=== PATIENT | male | born 1950 | race Caucasian/White ===

== ENCOUNTER → 2016-04-12 | Outpatient (CLI) | payer BC ==
[2016-04-12 07:47] LABS: Basophils % (A) 1 %; CH 33.8; Eosinophils # (A) 0.2 k/uL (0-0.7); Eosinophils % (A) 2 %; HCT 45.6 % (39.0-53.0); HDW 2.41; HGB 15.5 gm/dL (13.0-17.5); Luc # (Auto) 0.21; Luc % (Auto) 3; Lymphocytes # (A) 2.7 k/uL (1.0-4.8); Lymphocytes % (A) 31 %; MCH 33.9 pg (25.0-35.0); MCV 99.6 fL (80.0-100.0); Monocytes # (A) 0.4 k/uL (0-1.0); Monocytes % (A) 4 %; Neutrophils # (A) 5.1 k/uL (1.3-7.7); Neutrophils % (A) 60 %; RBC 4.58 m/uL (4.30-5.90); RDW 12.8 % (11.5-15.5); WBC 8.5 k/uL (3.8-10.6); WBC (Perox) 9.22
[2016-04-12 08:13] LABS: Manual Review Performed
[2016-04-12 08:14] LABS: RBC Morphology Normal
== END | disposition home or self-care (01) ==
LOC: LABWHC1 07:05
PROVIDERS: ATTEND Internal Medicine
DX: D64.9 Anemia, unspecified (principal); D69.6 Thrombocytopenia, unspecified
CPT/HCPCS: 36415; 85025

== ENCOUNTER → 2019-08-24 | Outpatient (CLI) | payer MEDICARE ==
--- NOTE | 2019-08-24 08:41 | US ---
EXAMINATION TYPE: US duplex aorta DATE OF EXAM: 08/24/2019 COMPARISON: NONE CLINICAL HISTORY: Z13.6 Encounter for screening for. Screening. EXAM MEASUREMENTS: Abdominal Aorta: Proximal: 1.7 x 1.9 cm Mid: 1.7 x 2.1 cm Distal: 1.6 x 1.7 cm Bifurcation: .9 cm .9 cm IMPRESSION: Mild atheromatous change without evidence for aneurysm.
--- NOTE | 2019-08-24 09:53 | CTL ---
EXAMINATION TYPE: CT Low Dose Lung DATE OF EXAM ORDERED: 08/24/2019 HISTORY: Z 13.6. Lung cancer screening CT DLP: 124.[address] CTDI: 3 mGy Automated exposure control for dose reduction was used. SCREENING VISIT: 1 COMPARISON: Chest x-ray 11/24/2015 TECHNIQUE: Low dose computed tomography scan was performed through the chest at 1 mm thick sections a nd reconstructed images in the coronal plane at [address] DIAGNOSTIC QUALITY: Satisfactory FINDINGS: LUNG NODULES: Present, detailed below: Left lung a nodule with a size of 4 mm. Nodule Size in Millimeters 4 mm was visualized with Nodule T ype: Solid that is Nodule state: New in nature on image # CT Image slide number [id number]. LUNGS: COPD: Severity: Moderate Fibrosis: Severity: Mild Lymph nodes: Nonenlarged Other findings: RIGHT PLEURAL SPACE: Effusion: None Calcification: None Thickening: None Pneumothorax: None LEFT PLEURAL SPACE: Effusion: None Calcification: None Thickening: None Pneumothorax: None HEART: Heart Size: Small Coronary calcification: Moderate to severe Pericardial effusion: None OTHER FINDINGS: Upper abdomen: Bony thorax: There is thoracic spondylosis present. Flowing anterior osteophytes in the lower thoraci c spine with preservation of disc space may be indicative of diffuse idiopathic skeletal hyperostosis Supraclavicular region: Left supraclavicular node appears enlarged, short axis measurement of 15 mm, axial image #25 Other: IMPRESSION: Benign lung nodule. Suspect abnormal enlarged left supraclavicular node. FOLLOW UP CT CHEST RECOMMENDATION: [address] LUNG RAD: 2
== END | disposition home or self-care (01) ==
LOC: RADCTMAIN 07:48
PROVIDERS: ATTEND Internal Medicine
DX: Z12.2 Encounter for screening for malignant neoplasm of respiratory organs (principal); R91.1 Solitary pulmonary nodule; I70.0 Atherosclerosis of aorta; Z87.891 Personal history of nicotine dependence
CPT/HCPCS: 93979; G0297

== ENCOUNTER → 2019-09-09 | Outpatient (CLI) | payer MEDICARE ==
[2019-09-09 12:02] LABS: African American GFR (CKD) >90 (>60 ml/min/1.73 sqM); Blood Urea Nitrogen 14 mg/dL (9-20); Non-African American GFR(CKD) >90 (>60 ml/min/1.73 sqM)
--- NOTE | 2019-09-09 12:54 | CT ---
EXAMINATION TYPE: CT soft tissue neck w con DATE OF EXAM: 09/09/2019 12:31 PM COMPARISON: None HISTORY: Lymphadenitis CT DLP: 758 mGycm Automated exposure control for dose reduction was used. CONTRAST: CT scan of the neck is performed, patient injected with 100 mL of Isovue 300. Axial images are obtai cj, coronal and sagittal reformatted images are reviewed. FINDINGS: Emphysematous changes involving the lung apices are seen. Visualized thyroid enhances homog eneously. Vocal cords are symmetric. Airways patent. Submandibular parotid glands have a normal appearance. Base of the tongue symmetric. Nasopharynx and oropharynx symmetric. Orbits are symmetric. No abnormality intracranially. Changes of sinus polyps or mucous retention cyst . No pathologic adenopathy. IMPRESSION: 1. No pathologic adenopathy. 2. Chronic sinusitis. 3. COPD
== END | disposition home or self-care (01) ==
LOC: RADCTMAIN 11:05
PROVIDERS: ATTEND Internal Medicine
DX: L04.9 Acute lymphadenitis, unspecified (principal)
CPT/HCPCS: 82565; 84520; 70491; Q9967

== ENCOUNTER 2021-02-23 11:15 | Observation (INO) | payer MEDICARE ==
[2021-02-23] MEDS ORDERED: SODIUM CHLORIDE 0.9% 500 ML 500 ML IV STA (12:36)
--- NOTE | 2021-02-23 13:10 | ED ---
General Adult HPI - General Chief complaint: GI Bleed Stated complaint: Blood in stool Time Seen by Provider: 02/23/21 12:00 Source: patient, RN notes reviewed, old records reviewed Mode of arrival: ambulatory Limitations: no limitations - History of Present Illness Initial comments: This is a 70-year-old male who presents emergency Department complaining that he is having some bright red blood per rectum. Patient states quite a bit started last evening he has had multiple bowel movements with nothing but blood. Patient denies any pain patient denies lightheadedness. Patient denies any shortness of breath or difficulty breathing. Patient denies being on any blood thinners. Patient states his last colonoscopy 4 years ago. Patient states stephen dhillon in bed here he feels at his baseline. Patient states he was not having any diarrhea prior to this. Patient denies any recent fever chills or cough. Patient denies any injury. Denies any history of hemorrhoids. - Related Data Home Medications Medication Instructions Recorded Confirmed Atorvastatin [Lipitor] 20 mg PO HS 11/24/15 02/23/21 Losartan [Cozaar] 50 mg PO HS 11/24/15 02/23/21 atenoloL [Tenormin] 50 mg PO DAILY 11/24/15 02/23/21 metFORMIN HCL [Glucophage] 500 mg PO HS 11/24/15 02/23/21 Aspirin EC [Ecotrin Low Dose] 81 mg PO HS 02/23/21 02/23/21 Allergies Allergy/AdvReac Type Severity Reaction Status Date / Time No Known Allergies Allergy Verified 02/23/21 12:34 Review of Systems ROS Statement: Those systems with pertinent positive or pertinent negative responses have been documented in the HPI. ROS Other: All systems not noted in ROS Statement are negative. Past Medical History Past Medical History: Diabetes Mellitus, Hyperlipidemia, Hypertension History of Any Multi-Drug Resistant Organisms: None Reported Past Surgical History: Adenoidectomy, Tonsillectomy Past Psychological History: No Psychological Hx Reported Smoking Status: Current every day smoker Past Alcohol Use History: Daily, Heavy Past Drug Use History: None Reported General Exam - General Exam Comments Initial Comments: GENERAL: Patient is well-developed and well-nourished. Patient is nontoxic and well- hydrated and is in no acute distress. ENT: Neck is soft and supple. No significant lymphadenopathy is noted. Oropharynx is clear. Moist mucous membranes. Neck has full range of motion without eliciting any pain. EYES: The sclera were anicteric and conjunctiva were pink and moist. Extraocular movements were intact and pupils were equal round and reactive to light. Eyelids were unremarkable. PULMONARY: Unlabored respirations. Good breath sounds bilaterally. No audible rales rh onchi or wheezing was noted. CARDIOVASCULAR: There is a regular rate and rhythm without any murmurs gallops or rubs. ABDOMEN: Soft and nontender with normal bowel sounds. SKIN: Skin is clear with no lesions or rashes and otherwise unremarkable. NEUROLOGIC: Patient is alert and oriented x3. Cranial nerves II through XII are grossly intact. Motor and sensory are also intact. Normal speech, volume and content. Symmetrical smile. MUSCULOSKELETAL: Normal extremities with adequate strength and full range of motion. LYMPHATICS: No significant lymphadenopathy is noted PSYCHIATRIC: Normal psychiatric evaluation. Limitations: no limitations Course Vital Signs 02/23/21 02/23/21 02/23/21 11:21 11:49 14:25 Temperature 97.6 F Pulse Rate 62 63 56 L Respiratory 18 18 16 Rate Blood Pressure 154/83 176/89 O2 Sat by Pulse 100 95 Oximetry Medical Decision Making - Medical Decision Making EKG shows sinus bradycardia 56 bpm OK interval 168 QRSs 86 QT interval 420 QTC is 405. Patient's EKG shows no ST segment elevation or depression. I spoke with some physician's name agreed to admit the patient. I spoke with Dr. Stewart doctor tomorrow agreed to be on consultation with this patient. I wrote admitting orders. - Lab Data Result diagrams: 02/23/21 12:37 02/23/21 12:37 Lab Results 02/23/21 02/23/21 02/23/21 Range/Units 12:37 12:37 12:37 WBC 6.4 (3.8-10.6) k/uL RBC 4.40 (4.30-5.90) m/uL Hgb 15.6 (13.0-17.5) gm/dL Hct 45.2 (39.0-53.0) % MCV 102.6 H (80.0-100.0) fL MCH 35.4 H (25.0-35.0) pg MCHC 34.5 (31.0-37.0) g/dL RDW 13.0 (11.5-15.5) % Plt Count 225 (150-450) k/uL MPV 8.4 Neutrophils % 70 % Lymphocytes % 20 % Monocytes % 5 % Eosinophils % 2 % Basophils % 0 % Neutrophils # 4.5 (1.3-7.7) k/uL Lymphocytes # 1.3 (1.0-4.8) k/uL Monocytes # 0.3 (0-1.0) k/uL Eosinophils # 0.1 (0-0.7) k/uL Basophils # 0.0 (0-0.2) k/uL Macrocytosis Slight PT 10.6 (9.0-12.0) sec INR 1.0 (<1.2) APTT 23.8 (22.0-30.0) sec Sodium 131 L (137-145) mmol/L Potassium 4.8 (3.5-5.1) mmol/L Chloride 100 (98-107) mmol/L Carbon Dioxide 22 (22-30) mmol/L Anion Gap 9 mmol/L BUN 13 (9-20) mg/dL Creatinine 0.82 (0.66-1.25) mg/dL Est GFR (CKD-EPI)AfAm >90 (>60 ml/min/1.73 sqM) Est GFR (CKD-EPI)NonAf >90 (>60 ml/min/1.73 sqM) Glucose 147 H (74-99) mg/dL Calcium 9.0 (8.4-10.2) mg/dL Total Bilirubin 0.7 (0.2-1.3) mg/dL AST 20 (17-59) U/L ALT 14 (4-49) U/L Alkaline Phosphatase 80 (38-126) U/L Total Protein 6.9 (6.3-8.2) g/dL Albumin 4.1 (3.5-5.0) g/dL Blood Type Blood Type Confirm Blood Type Recheck Bld Type Recheck Status Antibody Screen Spec Expiration Date 02/23/21 02/23/21 Range/Units 12:50 12:51 WBC (3.8-10.6) k/uL RBC (4.30-5.90) m/uL Hgb (13.0-17.5) gm/dL Hct (39.0-53.0) % MCV (80.0-100.0) fL MCH (25.0-35.0) pg MCHC (31.0-37.0) g/dL RDW (11.5-15.5) % Plt Count (150-450) k/uL MPV Neutrophils % % Lymphocytes % % Monocytes % % Eosinophils % % Basophils % % Neutrophils # (1.3-7.7) k/uL Lymphocytes # (1.0-4.8) k/uL Monocytes # (0-1.0) k/uL Eosinophils # (0-0.7) k/uL Basophils # (0-0.2) k/uL Macrocytosis PT (9.0-12.0) sec INR (<1.2) APTT (22.0-30.0) sec Sodium (137-145) mmol/L Potassium (3.5-5.1) mmol/L Chloride (98-107) mmol/L Carbon Dioxide (22-30) mmol/L Anion Gap mmol/L BUN (9-20) mg/dL Creatinine (0.66-1.25) mg/dL Est GFR (CKD-EPI)AfAm (>60 ml/min/1.73 sqM) Est GFR (CKD-EPI)NonAf (>60 ml/min/1.73 sqM) Glucose (74-99) mg/dL Calcium (8.4-10.2) mg/dL Total Bilirubin (0.2-1.3) mg/dL AST (17-59) U/L ALT (4-49) U/L Alkaline Phosphatase (38-126) U/L Total Protein (6.3-8.2) g/dL Albumin (3.5-5.0) g/dL Blood Type O Positive Blood Type Confirm O Positive Blood Type Recheck No Previous Record Bld Type Recheck Status CABO Indicated Antibody Screen NEGATIVE Spec Expiration Date 02/26/20212349 Disposition Clinical Impression: GI bleed Disposition: [facility] Referrals: Edmund Linares MD [Primary Care Provider] - 1-2 days Time of Disposition: 15:13
[2021-02-23 13:11] LABS: Basophils % (A) 0 %; Eosinophils # (A) 0.1 k/uL (0-0.7); Eosinophils % (A) 2 %; HCT 45.2 % (39.0-53.0); HGB 15.6 gm/dL (13.0-17.5); Lymphocytes # (A) 1.3 k/uL (1.0-4.8); Lymphocytes % (A) 20 %; MCH 35.4 pg (25.0-35.0); MCHC 34.5 g/dL (31.0-37.0); MCV 102.6 fL (80.0-100.0); Macrocytosis Slight; Mean Platelet Volume 8.4; Monocytes # (A) 0.3 k/uL (0-1.0); Monocytes % (A) 5 %; Neutrophils # (A) 4.5 k/uL (1.3-7.7); Neutrophils % (A) 70 %; Platelet Count 225 k/uL (150-450); WBC 6.4 k/uL (3.8-10.6)
[2021-02-23 13:13] LABS: ALT 14 U/L (4-49); AST 20 U/L (17-59); African American GFR (CKD) >90 (>60 ml/min/1.73 sqM); Albumin 4.1 g/dL (3.5-5.0); Alkaline Phosphatase 80 U/L (38-126); Anion Gap 9 mmol/L; Carbon Dioxide 22 mmol/L (22-30); Chloride 100 mmol/L (98-107); Glucose 147 mg/dL (74-99); Non-African American GFR(CKD) >90 (>60 ml/min/1.73 sqM); Potassium 4.8 mmol/L (3.5-5.1); Sodium 131 mmol/L (137-145); Total Bilirubin 0.7 mg/dL (0.2-1.3); Total Protein 6.9 g/dL (6.3-8.2)
[2021-02-23 13:14] LABS: Blood Urea Nitrogen 13 mg/dL (9-20); Partial Thromboplastin Time 23.8 sec (22.0-30.0); Prothrombin Time 10.6 sec (9.0-12.0)
[2021-02-23] MEDS ORDERED: NICOTINE 14MG/24HR PATCH TRANSDERM PRN (14:27)
[2021-02-23] MEDS ORDERED: NALOXONE 0.4 MG/ML 1 ML VIAL IV PRN (14:29)
--- NOTE | 2021-02-23 14:36 | P.HPIM ---
History of Present Illness H&P Date: 02/23/21 Chief Complaint: GI bleeding 70-year-old male who presents emergency Department complaining that he is having some bright red blood per rectum. Had 2 episodes, one last night and one this am. The one this am was smaller in the amount. Patient denies any pain, no sob, no lightheadedness. He is not on any blood thinners. Patient states his last colonoscopy was 4 years ago. Has not been sick lately, no fever chills or cough. Denies any history of hemorrhoids. In the ER his vitals were ok. Na was 131, rest of labs ok. He was admitted for further monitoring. Review of Systems Complete review of system performed, pertinent positives per HPI, otherwise negative Past Medical History Past Medical History: Diabetes Mellitus, Hyperlipidemia, Hypertension History of Any Multi-Drug Resistant Organisms: None Reported Past Surgical History: Adenoidectomy, Tonsillectomy Past Psychological History: No Psychological Hx Reported Smoking Status: Current every day smoker Past Alcohol Use History: Daily, Heavy Past Drug Use History: None Reported Medications and Allergies Home Medications Medication Instructions Recorded Confirmed Type Atorvastatin [Lipitor] 20 mg PO HS 11/24/15 02/23/21 History Losartan [Cozaar] 50 mg PO HS 11/24/15 02/23/21 History atenoloL [Tenormin] 50 mg PO DAILY 11/24/15 02/23/21 History metFORMIN HCL [Glucophage] 500 mg PO HS 11/24/15 02/23/21 History Aspirin EC [Ecotrin Low Dose] 81 mg PO HS 02/23/21 02/23/21 History Allergies Allergy/AdvReac Type Severity Reaction Status Date / Time No Known Allergies Allergy Verified 02/23/21 12:34 Physical Exam Vitals: Vital Signs Temp Pulse Resp BP Pulse Ox 02/23/21 14:25 56 L 16 176/89 95 02/23/21 11:49 63 18 154/83 100 02/23/21 11:21 97.6 F 62 18 Intake and Output 02/22/21 02/23/21 02/23/21 22:59 06:59 14:59 Other: Weight 90.718 kg Constitutional: No acute distress, conversant, pleasant Eyes:Anicteric sclerae, moist conjunctiva, no lid-lag, PERRLA, ENMT: Oropharynx clear, no erythema, exudates Neck: Supple, FROM, no masses, or JVD, No carotid bruits, No thyromegaly Lungs: Clear to auscultation, Clear to percussion, Normal respiratory effort, no accessory muscle use Cardiovascular: Heart regular in rate and rhythm, No murmurs, gallops, or rubs, No peripheral edema Abdominal: Soft, Nontender, no guarding, rebound or rigidity, Normoactive bowel sounds, No hepatomegaly, No splenomegaly, No palpable mass Skin: Normal temperature, tone, texture, turgor, no induration, No subcutaneous nodules, No rash, lesions, No ulcers Extremities: No digital cyanosis, No clubbing, Pedal pulses intact and symmetrical, Radial pulses intact and symmetrical, No calf tenderness Psychiatric: Alert and oriented to person, place and time, appropriate affect, intact judgement Neuro: Muscles Strength 5/5 in all 4 extremities, Sensation to light touch grossly present throughout, Cranial nerves II-XII grossly intact, no focal sensory deficits Results CBC & Chem 7: 02/23/21 12:37 02/23/21 12:37 Labs: Abnormal Lab Results - Last 24 Hours (Table) 02/23/21 02/23/21 Range/Units 12:37 12:37 MCV 102.6 H (80.0-100.0) fL MCH 35.4 H (25.0-35.0) pg Sodium 131 L (137-145) mmol/L Glucose 147 H (74-99) mg/dL Assessment and Plan Plan: GI bleeding Differential includes hemorrhoids vs. diverticular bleed. R/o cancer. Seen by GI already in the ER Will monitor for further bleeding. Recheck hgb in am Chronic HTN Diabetes 2 Hyperlipidemia Stable Resume meds Admit to observation
[2021-02-23] MEDS ORDERED: PEG 3350-NA SULF,BICARB,CL/KCL 4,000 ML BOTTLE PO ONE (16:00)
--- NOTE | 2021-02-23 16:03 | P.CONS ---
History of Present Illness - Reason for Consult Consult date: 02/23/21 GI bleed Requesting physician: Gibson Burgess - Chief Complaint Rectal bleeding - History of Present Illness This is 70-year-old male who presented to the emergency department today with complaints of bright red blood per rectum. Past medical history includes diabetes mellitus, hypertension and hyperlipidemia. He states last night he had a bowel movement which was loose and filled the toilet with blood. He again had a bowel movement this morning around 8 AM that was more formed but still had bright red blood. He denied any associated cramping or abdominal pain. Denied any nausea or vomiting, fevers or chills. No recent sick contacts. He denies any anticoagulation or NSAID use but does take a low-dose baby aspirin daily. He states he does have a history of diverticulitis with his last colonoscopy at age 66 which was approximately [address] Golden. No previous history of GI bleed. Admitting labs WBC 6.4 hemoglobin 15.6 platelet count 225,000 INR 1.0. Review of Systems REVIEW OF SYSTEMS: CARDIOPULMONARY: No chest pain or shortness of breath. Gastrointestinal: No abdominal pain, cramping, or bloating. No nausea or vomiting. No hematemesis, coffee-ground emesis. 2 reported bowel movements with bright red blood. GENITOURINARY: No dysuria or hematuria. MUSCULOSKELETAL: Reports normal range of motion., Joint pain. SKIN: No rashes. No jaundice. ENDOCRINE: No chills, fevers. No excessive weight gain or loss. No polydipsia or polyuria. PSYCHIATRIC: Unremarkable. NEUROLOGY: No change in mental status. Denies dizziness, headache. ENT: Vision unremarkable. CONSTITUTIONAL: No recent weight loss. No fever, chills, night sweats. Past Medical History Past Medical History: Diabetes Mellitus, Hyperlipidemia, Hypertension History of Any Multi-Drug Resistant Organisms: None Reported Past Surgical History: Adenoidectomy, Tonsillectomy Past Psychological History: No Psychological Hx Reported Smoking Status: Current every day smoker Past Alcohol Use History: Daily, Heavy Past Drug Use History: None Reported Medications and Allergies Home Medications Medication Instructions Recorded Confirmed Type Atorvastatin [Lipitor] 20 mg PO HS 11/24/15 02/23/21 History Losartan [Cozaar] 50 mg PO HS 11/24/15 02/23/21 History atenoloL [Tenormin] 50 mg PO DAILY 11/24/15 02/23/21 History metFORMIN HCL [Glucophage] 500 mg PO HS 11/24/15 02/23/21 History Aspirin EC [Ecotrin Low Dose] 81 mg PO HS 02/23/21 02/23/21 History Allergies Allergy/AdvReac Type Severity Reaction Status Date / Time No Known Allergies Allergy Verified 02/23/21 12:34 Physical Exam Vitals: Vital Signs Temp Pulse Resp BP Pulse Ox 02/23/21 11:49 63 18 154/83 100 02/23/21 11:21 97.6 F 62 18 Intake and Output 02/22/21 02/23/21 02/23/21 22:59 06:59 14:59 Other: Weight 90.718 kg General appearance: The patient is alert, oriented, appears in no acute distress. HET: Head is normocephalic and atraumatic. Conjunctiva pink. Sclera anicteric. Neck: Supple without lymphadenopathy. Trachea midline. Heart: S1 S2. Regular rate and rhythm. Lungs: Clear to auscultation. Abdomen: Soft, nontender, nondistended with bowel sounds. No guarding or rigidity. Skin: No rashes. No jaundice. Extremities: Normal skin color and turgor. No pedal edema. Neurological: No focal deficits. Alert and oriented x3. Results CBC & Chem 7: 02/23/21 12:37 02/23/21 12:37 Labs: Abnormal Lab Results - Last 24 Hours (Table) 02/23/21 02/23/21 Range/Units 12:37 12:37 MCV 102.6 H (80.0-100.0) fL MCH 35.4 H (25.0-35.0) pg Sodium 131 L (137-145) mmol/L Glucose 147 H (74-99) mg/dL Assessment and Plan (1) GI bleed Narrative/Plan: A 70-year-old male who presented to the emergency department with complaints of rectal bleeding 2. First episode occurred last night he had a loose bowel movement and filled the toilet with bright red blood. Second was this morning which was more formed but still bright red blood in the toilet and mixed in the stool. He has no previous history of GI bleed. He denied any associated cramping or pain. No nausea or vomiting fevers or chills. I does have a history of diverticulitis with us last colonoscopy [address] Golden. An admission labs were unremarkable. Patient continues to have no abdominal pain nausea or vomiting. He's had no further bleeding. Possible etiologies include diverticular bleed, colitis, AVM or other possible etiologies. Patient has been nothing by mouth and plan is for admission with bowel prep for colonoscopy tomorrow. Current Visit: Yes Status: Acute Code(s): K92.2 - GASTROINTESTINAL HEMORRHAGE, UNSPECIFIED SNOMED Code(s): 75374892 Plan: 1. Continue symptomatic and supportive care 2. Clear liquid diet, nothing by mouth after midnight 3. Bowel prep this afternoon 4. CBC in the a.m., transfuse for hemoglobin less than 7 5. Plan for colonoscopy tomorrow, procedure discussed with patient including risks and benefits. Patient is agreeable to proceed. 6. Protonix for GI prophylaxis Thank you for this consultation, we will continue to follow. Dr. Juliet Stewart I agree with the dictator's note, documented as a scribe by Raina Nino.
[2021-02-23] MEDS ORDERED: ATORVASTATIN 20 MG TAB PO SCH (21:00)
[2021-02-23] MEDS ORDERED: LOSARTAN 50 MG TAB PO SCH (21:00)
[2021-02-24 06:47] VITALS: RESP 16
[2021-02-24] MEDS ORDERED: LIDOCAINE 1% INJ 10MG/ML (20 ML MDV) ONE (06:49)
[2021-02-24] MEDS ORDERED: PROPOFOL 10 MG/ML 20 ML VIAL IV ONE (06:49)
[2021-02-24] MEDS ORDERED: LACTATED RINGERS 1,000 ML IV ONE (06:55)
[2021-02-24] MEDS ORDERED: PANTOPRAZOLE 40 MG TABLET PO SCH (07:30)
--- NOTE | 2021-02-24 07:30 | P.PCN ---
Date of Procedure: 02/24/21 Procedure(s) Performed: BRIEF HISTORY: Patient is a 70-year-old [place] [id number] male admitted hospital with acute lower GI bleed. He had few episodes of bright blood per rectum and the hemoglobin was 10.3 g/dL. Repeat CBC this morning is pending. He scheduled for colonoscopy to evaluate further. PROCEDURE PERFORMED: Colonoscopy. PREOPERATIVE DIAGNOSIS: Acute lower GI bleed. IV sedation per Anesthesia. PROCEDURE: After informed consent was obtained, the patient, was brought into the endoscopy unit. IV sedation was administered by Anesthesia under continuous monitoring. Digital rectal examination was normal. Initially the Olympus CF-160 flexible video colonoscope was then inserted in the rectum, gradually advanced into the cecum without any difficulty. Careful examination was performed as the scope was gradually being withdrawn. Ileocecal valve and the appendiceal orifice were visualized and appeared normal. Prep was fair. There was some fresh blood noted in the left colon.. Mucosa of the cecum, ascending colon, transverse colon, appeared normal. In the left colon there were moderate sigmoid diverticulosis but no active bleeding identified. There was some old blood noted in this area which was thoroughly irrigated. The cause of the descending colon, sigmoid colon, and rectum appeared normal. Retroflexion was performed in the rectum and no lesions were seen. The patient tolerated the procedure well. IMPRESSION: Moderate left sided diverticulosis with some fresh blood noted but no evidence of active bleeding Rest of the colon appeared normal RECOMMENDATIONS: Findings of this examination were discussed with the patient as well as his family. At this time is slightly he had a diverticular bleed from the left colon which appears to be a spontaneously resolved. We will monitor him closely. Repeat CBC today. The bleeding he can be discharged home later today..
[2021-02-24 07:50] VITALS: BP 142/76; PULSE 71; TEMP 98.5
[2021-02-24] MEDS ORDERED: atenoloL 25 MG TAB PO SCH (09:00)
[2021-02-24 09:12] LABS: Basophils # (A) 0.03 X 10*3/uL (0.00-0.10); Basophils % (A) 0.6 %; Eosinophils # (A) 0.18 X 10*3/uL (0.04-0.35); Eosinophils % (A) 3.3 %; HCT 39.2 % (39.6-50.0); HGB 13.3 g/dL (13.0-17.0); Lymphocytes # (A) 1.58 X 10*3/uL (0.90-5.00); Lymphocytes % (A) 29.3 %; MCH 33.8 pg (27.0-32.0); MCHC 33.9 g/dL (32.0-37.0); MCV 99.7 fL (80.0-97.0); Mean Platelet Volume 10.4 fL (9.5-12.2); Monocytes # (A) 0.47 X 10*3/uL (0.20-1.00); Monocytes % (A) 8.7 %; Neutrophils # (A) 3.12 X 10*3/uL (1.80-7.70); Neutrophils % (A) 57.7 %; Platelet Count 214 X 10*3/uL (140-440); RBC 3.93 X 10*6/uL (4.40-5.60); RDW 12.7 % (11.5-14.5)
[2021-02-24] MEDS: SODIUM CHLORIDE 0.9% 1,000 ML IV SCH ×3 (09:38→09:42)
[2021-02-24 09:50] LABS: African American GFR (CKD) 105.6 (60.0-200.0); Albumin 3.8 g/dL (3.8-4.9); Anion Gap 9.7 mmol/L (10.00-18.00); Calcium 8.5 mg/dL (8.7-10.3); Carbon Dioxide 24.3 mmol/L (20.0-27.5); Globulin 1.9 g/dL (1.6-3.3); Magnesium 2.2 mg/dL (1.5-2.4); Non-African American GFR(CKD) 91.1 (60.0-200.0); Phosphorus 3.7 mg/dL (2.4-5.1); Potassium 4.4 mmol/L (3.5-5.5); Total Bilirubin 0.5 mg/dL (0.30-1.20); Total Protein 5.7 g/dL (6.2-8.2)
--- NOTE | 2021-02-24 11:09 | P.DS ---
Providers Date of admission: 02/23/21 14:30 Expected date of discharge: 02/24/21 Attending physician: Antonietta Kamara MD Consults: 02/23/21 14:30 Consult Physician Routine Consulting Provider: Malissa Stewart Consult Reason/Comments: gi bleeding Do you want consulting provider notified?: Yes Primary care physician: Edmund Linares MD Hospital Course: 70-year-old male who presents emergency Department complaining that he is having some bright red blood per rectum. Had 2 episodes, one last night and one this am. The one this am was smaller in the amount. Patient denies any pain, no sob, no lightheadedness. He is not on any blood thinners. Patient states his last colonoscopy was 4 years ago. Has not been sick lately, no fever chills or cough. Denies any history of hemorrhoids. In the ER his vitals were ok. Na was 131, rest of labs ok. Hgb normal. He was admitted for further monitoring. Upon admission her hemoglobin remained stable. He had colonoscopy done by GI this morning which showed diverticulosis. He did not have any further episodes of bleeding during the hospitalization. He remained hemodynamically stable. He was given advice on high-fiber diet and will be discharged home in stable condition. Plan - Discharge Summary New Discharge Prescriptions: Continue metFORMIN HCL [Glucophage] 500 mg PO HS Losartan [Cozaar] 50 mg PO HS Atorvastatin [Lipitor] 20 mg PO HS atenoloL [Tenormin] 50 mg PO DAILY Aspirin EC [Ecotrin Low Dose] 81 mg PO HS Discharge Medication List Atorvastatin [Lipitor] 20 mg PO HS 11/24/15 [History] Losartan [Cozaar] 50 mg PO HS 11/24/15 [History] atenoloL [Tenormin] 50 mg PO DAILY 11/24/15 [History] metFORMIN HCL [Glucophage] 500 mg PO HS 11/24/15 [History] Aspirin EC [Ecotrin Low Dose] 81 mg PO HS 02/23/21 [History] Follow up Appointment(s)/Referral(s): Edmund Linares MD [Primary Care Provider] - 1-2 days
== END 2021-02-24 12:21 | disposition home or self-care (01) ==
LOC: EC 11:15 → 6NMEDSUR 14:30
PROVIDERS: ADMIT Internal Medicine; ATTEND Internal Medicine
DX: K57.31 Diverticulosis of large intestine without perforation or abscess with bleeding (principal); E11.9 Type 2 diabetes mellitus without complications; E78.5 Hyperlipidemia, unspecified; I10 Essential (primary) hypertension; F17.200 Nicotine dependence, unspecified, uncomplicated; R00.1 Bradycardia, unspecified; Z20.822 Contact with and (suspected) exposure to COVID-19; Z79.899 Other long term (current) drug therapy; Z79.84 Long term (current) use of oral hypoglycemic drugs; Z79.82 Long term (current) use of aspirin; Z71.9 Counseling, unspecified
CPT/HCPCS: 99285; 36415; 93005; 86900; 86901; 80053 ×2; 83735; 84100; 85025 ×2; 85610; 85730; 86850; 87635; 45378; G0378 ×2; S4990; J2001; J2704